=== PATIENT | female | born 1980 | race Caucasian/White ===

== ENCOUNTER 2019-10-29 13:07 | Emergency (ER) | payer OTHER, SELFPAY ==
[2019-10-29] VITALS (10 sets, daily range): BP systolic 84–137; BP diastolic 47–87; PULSE 66–88; RESP 16–23; TEMP 36.9; O2SAT 96–100
--- NOTE | ~2019-10-29 | XR_ITS ---
XR chest 2V DATE: 10/29/2019 13:37 INDICATION: Acute onset of chest pain, midsternal area TECHNIQUE: PA and lateral views COMPARISON: None FINDINGS: Normal heart size. No hilar or mediastinal enlargement. No pulmonary infiltrate or consolid ation, pleural effusion or pulmonary vascular congestion or pneumothorax. IMPRESSION: No active cardiopulmonary disease Reviewed, dictated and finalized at location B.
--- NOTE | ~2019-10-29 | CT_ITS ---
EXAMINATION: CTA chest PE protocol DATE: 10/29/2019 16:38 INDICATION: Chest pain. Elevated d-dimer. TECHNIQUE: Computed tomography angiography (CTA) of the chest was performed with 100 mL Omnipaque-350 intravenous contrast timed to evaluate the pulmonary arteries. Coronal maximum intensity projection 3D-reconstructions were created by the technologist. Automated exposure control and iterative reconst ruction technique were employed. Exam dose: 399.07 mGy-cm total exam DLP. COMPARISON: 10/28/2021 view chest FINDINGS: There is diagnostic contrast enhancement of the pulmonary arteries and no evidence of pulmo nary embolism. Approximately 1.5 cm hypoattenuating mass in the right lobe of the thyroid gland; consider thyroid ul trasound for further evaluation. No thoracic aortic aneurysm or dissection. Normal heart size. No hilar or mediastinal mass lesion or lymphadenopathy. No pericardial or pleural effusion. No pulmonary infiltrate or consolidation or pulmonary mass lesion is detected. There are numerous hypoenhancing areas within the spleen, some ill-defined, some circular and mass-li ke. The spleen measures approximately [address] abdomen pelvis with IV contrast material is re commended for further evaluation. IMPRESSION: No evidence of pulmonary embolism Possible splenic masses, raising concern for possible lymphoma, granulomatous disease,, less likely m etastatic disease. This may just be a normal variant heterogeneous enhancement pattern of the spleen. CT abdomen and pelvis with IV contrast material is recommended for further more complete evaluation of the abdomen and pelvis as well as spleen. Consider thyroid ultrasound for evaluation of approximately 1.5 cm mass in the right lobe Reviewed, dictated and finalized at Location A. Reviewed, dictated and finalized at location B. IMPRESSION: No evidence of pulmonary embolism Possible splenic masses, raising concern for possible lymphoma, granulomatous d isease,, less likely metastatic disease. This may just be a normal variant hete rogeneous enhancement pattern of the spleen. CT abdomen and pelvis with IV cont rast material is recommended for further more complete evaluation of the abdome n and pelvis as well as spleen. Consider thyroid ultrasound for evaluation of approximately 1.5 cm mass in the right lobe
--- NOTE | 2019-10-29 13:21 | ECG_ITS ---
Measurements Intervals [place] Rate: 89 P: 53 MA: 137 QRS: 38 QRSD: 100 T: 35 QT: 352 QTc: 429 Interpretive Statements SINUS RHYTHM INCOMPLETE RIGHT BUNDLE BRANCH BLOCK BORDERLINE ECG Electronically Signed On 10-29-2019 13:40:15 CDT by Herberth Sheppard D.O.
[2019-10-29 13:36] LABS: Basophils Percent Auto 0.5 % (0.2-1.2); Eosinophils Absolute Auto 0.1 K/mm3 (0-0.3); Eosinophils Percent Auto 0.8 % (0-4.4); Hematocrit 38.5 % (37.0-47.0); Hemoglobin 12.6 g/dL (12.0-15.0); Immature Granulocyte Absolute 0.02 K/mm3 (0.00-0.031); Immature Granulocyte Percent A 0.3 % (0-0.5); Lymphocytes Absolute Auto 1.76 K/mm3 (0.9-3.2); Lymphocytes Percent Auto 22.5 % (18.3-44.2); Mean Corpuscular HGB Conc 32.7 g/dl (32-36); Mean Corpuscular Hemoglobin 29.8 pg (26-34); Mean Platelet Volume 10.2 fl (7.4-10.4); Monocytes Absolute Auto 0.3 K/mm3 (0.1-0.6); Monocytes Percent Auto 4.2 % (2.6-8.5); Neutrophils Absolute Auto 5.6 K/mm3 (1.3-6.7); Neutrophils Percent Auto 71.7 % (45.5-73.1); Platelet Count Result 249 k/mm3 (150-375); Red Blood Count 4.23 M/mm3 (4.2-5.4); Red Cell Distribution Width 12.7 % (11.5-14.5); White Blood Count 7.8 K/mm3 (4.5-10.0)
[2019-10-29 13:46] LABS: Prothrombin Time 12.4 Seconds (11.1-14.7)
[2019-10-29 13:47] LABS: Partial Thromboplastin Time 28.4 SECONDS (22.3-36.8)
[2019-10-29] MEDS: ASPIRIN 81 MG CHEWABLE TABLET 324 MG PO (13:47)
--- NOTE | 2019-10-29 13:47 | ED.CHESTPAIN ---
HPI - Chest Pain General Chief Complaint: Chest Pain Stated Complaint: chest pain Time Seen by Provider: 10/29/19 13:28 Source: patient and RN notes reviewed Mode of arrival: ambulatory Limitations: no limitations History of Present Illness HPI narrative: Pt is a 39 y/o female who presents to the ED with c/o waxing and waning midsternal chest pain starting 4 days ago. She describes her pain as a tightness, and notes that her pain began to radiate into her middle back and down her lt arm 2 days ago. Pt states that her pain was slightly alleviated throughout the day yesterday, but notes that her pain worsened today. She currently rates her pain at 5/10. Pt denies any nausea, vomiting, fever, chills, cough, or SOB. She notes that she has a Hx of anxiety, and states that she believes her symptoms may be a result of her anxiety. MD complaint: chest pain Onset (ago): day(s) (4) Timing of current episode: other (waxing and waning) Pain location: other (midsternal chest) Pain radiation: left arm and back (middle back) Pain scale (0-10): 5 Quality: tightness Associated symptoms: other (none) Related Data Allergies Allergy/AdvReac Type Severity Reaction Status Date / Time No Known Allergies Allergy Unverified 05/11/17 13:24 Review of Systems Review of Systems: All systems reviewed & are unremarkable except as noted in HPI and below Constitutional: Constitutional: Denies chills and Denies fever(s) Cardiovascular: Cardiovascular: Reports chest pain (midsternal chest pain radiating into middle back and lt arm) Respiratory: Respiratory: Denies cough and Denies dyspnea Gastrointestinal: Gastrointestinal: Denies nausea and Denies vomiting PMFSH Past Medical History Medical History Anxiety Surgical History Surgical History Hx of section Hx of dilation and curettage Social History Social History Smoking status: Never smoker Gender identity (if verbalized by the patient): Female Exam Narrative: Exam Narrative: GENERAL: Well-appearing, well-nourished, and in no acute distress. HEAD: Normocephalic, atraumatic EYES: PERRLA and EOMI, conjunctiva clear without discharge THROAT:Mucous membranes moist, Oropharynx normal without erythema, exudate, peritonsillar swelling or fluctuance NECK: Supple, without lymphadenopathy or mass RESPIRATORY: No respiratory distress, Airway patent, Respirations non-labored, Clear to auscultation without rales, rhonchi or wheeze HEART: Regular rate and rhythm. No murmur heard. Normal peripheral pulses. ABDOMEN: Soft, nontender, nondistended, normal active bowel sounds. No masses. No rebound or guarding, No organomegaly. EXTREMITIES: No edema, normal strength with full range of motion. SKIN: Warm, dry, normal color without rash NEURO: Alert and oriented x3. CN 2-12 grossly intact. No focal deficits. PSYCH: Normal mood and affect. Course Reevaluation(s) Reevaluation #1: Patient reports she feels better. I have discussed with patient CT scan shows abnormality in her spleen that she will need further evaluation as outpatient. I discussed with radiology and he states he would not reimage at this point as patient received IV contrast today already and this is likely not cause of symptoms. Date: 10/29/19 Time: 18:20 Vital Signs Vital signs: Vital Signs Temperature 98.5 F 10/29/19 13:16 Pulse Rate 88 10/29/19 13:16 Respiratory Rate 18 10/29/19 13:16 Blood Pressure 137/84 10/29/19 13:16 Pulse Oximetry 100 10/29/19 13:16 Temperature 98.5 F 10/29/19 13:16 Pulse Rate 73 10/29/19 18:00 Respiratory Rate 18 10/29/19 18:00 Blood Pressure 125/87 10/29/19 18:31 Pulse Oximetry 100 10/29/19 18:31 MDM - Chest Pain Lab Data Attestation: I reviewed the patient's lab results. Result diagrams: 10/29/19 1
[2019-10-29] MEDS: NITROGLYCERIN SL 0.4 MG TABLET SUBLINGUAL (14:12)
[2019-10-29] MEDS: SODIUM CHLORIDE 0.9% IV 1,000 ML 999 ML (14:28)
[2019-10-29 14:33] LABS: Blood Urea Nitrogen 16 mg/dL (7-17); Calcium 9.2 mg/dL (8.4-10.2); Carbon Dioxide 25 mmol/L (22-30); Chloride 103 mmol/L (98-107); Estimated CRCL calculation 104 ml/min; Estimated Glomerular Filt Rate > 60; Glucose 99 mg/dL (65-105); Sodium 137 mmol/L (137-145)
[2019-10-29 14:45] LABS: Troponin I < 0.012 ng/mL (0.000-0.034)
--- NOTE | 2019-10-29 14:51 | PC.NURSE ---
Called lab to add on d-dimer.
[2019-10-29 15:01] LABS: D Dimer 0.72 ug/mL (<0.48)
[2019-10-29] MEDS: LACTATED RINGERS 1,000 ML 999 ML IV CONT (15:13)
[2019-10-29 17:35] LABS: Troponin I < 0.012 ng/mL (0.000-0.034)
== END 2019-10-29 18:46 | disposition home or self-care (01) ==
PROVIDERS: Emergency Medicine; Emergency Provider General Practice
DX: R07.9 Chest pain, unspecified (principal); I45.10 Unspecified right bundle-branch block; F41.9 Anxiety disorder, unspecified
CPT/HCPCS: 36415; 71046; 71275; 80048; 81025; 84484; 85025; 85380; 85610; 85730; 93005; 96360; 96361; 99284; A9270; J7030; J7120; Q9967

== ENCOUNTER 2021-07-01 08:43 | Outpatient (CLI) | payer OTHER, SELFPAY ==
--- NOTE | ~2021-07-01 | XR_ITS ---
XR lumbar spine 2-3V DATE: 07/01/2021 10:20 INDICATION: Low back pain, right sciatica TECHNIQUE: Peak, lateral, coned lateral lumbosacral views COMPARISON: None FINDINGS: There is moderate degenerative disc disease at L5-S1. The lumbar interspaces are relatively well preserved. No fracture or bone destruction or spondylolisthesis. The lumbar pedicles are intact. The sacroiliac joints are intact. IMPRESSION: Moderate degenerative disc disease at L5-S1 Reviewed, dictated and finalized at location A. V/STOL LANDING SIGNAL OFFICER
--- NOTE | ~2021-07-01 | XR_ITS ---
XR chest 2V DATE: 07/01/2021 10:19 INDICATION: Chest pain TECHNIQUE: PA and lateral views COMPARISON: 10/29/2019 CT pulmonary scan 10/29/2019 2 view chest FINDINGS: Normal heart size. No hilar or mediastinal enlargement. No pulmonary infiltrate or consolid ation, pleural effusion or pulmonary vascular congestion or pneumothorax. Included skeletal structure s are unremarkable. IMPRESSION: Negative chest Reviewed, dictated and finalized at location A. FITS CLERK IMPRESSION: Negative chest
--- NOTE | ~2021-07-01 | XR_ITS ---
XR thoracic spine 3V DATE: 07/01/2021 10:20 INDICATION: Thoracic spine pain TECHNIQUE: Standing AP, swimmer and lateral views COMPARISON: None FINDINGS: No fracture or dislocation. The thoracic pedicles are intact. Minimal degenerative spurring . Thoracic interspaces are preserved. No paraspinal soft tissue thickening. IMPRESSION: Minimal degenerative spurring Reviewed, dictated and finalized at location A. EMENTATION LEAD
== END 2021-07-01 08:44 ==
DX: R07.89 Other chest pain (principal); G89.29 Other chronic pain; M54.41 Lumbago with sciatica, right side; M54.42 Lumbago with sciatica, left side; M51.37 Other intervertebral disc degeneration, lumbosacral region
CPT/HCPCS: 71046; 72072; 72100

== ENCOUNTER → 2021-07-12 12:40 | Outpatient (CLI) | payer OTHER, SELFPAY ==
--- NOTE | ~2021-07-12 | MR_ITS ---
EXAMINATION: MR lumbar spine wo con DATE: 07/12/2021 13:41 INDICATION: Chronic back pain. Bilateral sciatica. TECHNIQUE: Magnetic resonance imaging (MRI) of the lumbar spine was performed without intravenous con trast. Sequences included sagittal T2-weighted FSE, sagittal T2-weighted FS FSE, sagittal T1-weighted FSE, and axial T2-weighted FSE. COMPARISON: Lumbar spine radiographs 07/01/2021 FINDINGS: Bone alignment is normal. Vertebral body heights are normal. There is moderately decreased disc height at L5-S1 with endplate remodeling. The distal spinal cord signal intensity is normal. The conus medullaris is at L1. The following disc levels are specifically discussed: L1-L2: The disc does not extend beyond the endplate margin. There is mild bilateral facet joint osteo arthritis. There is no neural foraminal stenosis. There is no central canal stenosis. L2-L3: The disc does not extend beyond the endplate margin. There is mild bilateral facet joint osteo arthritis. There is no neural foraminal stenosis. There is no central canal stenosis. L3-L4: The disc does not extend beyond the endplate margin. There is mild bilateral facet joint osteo arthritis. There is no neural foraminal stenosis. There is no central canal stenosis. L4-L5: The disc is bulging and has an annular fissure. There is no facet joint osteoarthritis. There is mild bilateral neural foraminal stenosis. There is mild central canal stenosis. L5-S1: The disc is bulging and has an annular fissure. There is mild bilateral facet joint osteoarthr itis. There is mild bilateral neural foraminal stenosis. There is mild central canal stenosis. IMPRESSION: 1. Mild lumbar spondylosis. Reviewed, dictated and finalized at location A. ING AGENCY MANAGER IMPRESSION: 1. Mild lumbar spondylosis.
--- NOTE | ~2021-07-12 | MR_ITS ---
EXAMINATION: MR thoracic spine wo con DATE: 07/12/2021 13:40 INDICATION: Chronic back pain. Bilateral sciatica. TECHNIQUE: Magnetic resonance imaging (MRI) of the thoracic spine was performed without intravenous c ontrast. Sagittal localizer T1-weighted FSE of the cervical spine was obtained. Thoracic spine sequen ariane included sagittal T2-weighted FSE, sagittal T1-weighted FSE, sagittal STIR FSE, and axial T2-weig hted FSE. COMPARISON: Thoracic spine radiographs 07/01/2021, chest CT 10/29/2019 FINDINGS: Bone alignment is normal. Vertebral body heights are normal. There is mildly decreased disc height at T5-T6. The discs do not extend beyond the endplate margins. There is mild facet joint oste oarthritis at a few levels. No neural foraminal stenosis or central canal stenosis. The spinal cord s ignal intensity is normal. There are multiple lesions of increased T2-weighted signal intensity in th e spleen, which are chronic, likely benign. IMPRESSION: 1. Mild thoracic spondylosis. Reviewed, dictated and finalized at location A. MOBILE ASSEMBLER
== END ==
DX: M54.42 Lumbago with sciatica, left side (principal); M54.41 Lumbago with sciatica, right side; G89.29 Other chronic pain; M47.894 Other spondylosis, thoracic region; M47.896 Other spondylosis, lumbar region
CPT/HCPCS: 72146; 72148

== ENCOUNTER → 2022-09-08 07:51 | Outpatient (CLI) | payer OTHER, SELFPAY ==
--- NOTE | ~2022-09-08 | MR_ITS ---
MRI of the thoracic spine Clinical History: Pain Technique: Axial T2-weighted images, and sagittal T1-weighted, T2-weighted, and STIR images were acqu ired. Findings: There is no fracture or subluxation of the thoracic spine. Vertebral bodies maintain normal height and alignment. No bone marrow signal abnormality identified. No disc bulge or herniation seen at any thoracic level. There is no spinal canal stenosis or cord com pression thoracic spine. No abnormal signal seen in the spinal cord. No epidural mass or collection. Paravertebral soft tissue s are unremarkable. Impression: Unremarkable exam. Reviewed, dictated and finalized at location . ESSIONAL NURSE Impression: Unremarkable exam.
--- NOTE | ~2022-09-08 | MR_ITS ---
MRI of the lumbar spine Clinical History: Back pain Technique: Axial T2-weighted images, and sagittal T1-weighted, T2-weighted, and T2 fat-sat images wer e acquired. COMPARISON: 07/12/2021 Findings: There is no fracture or subluxation of the lumbar spine. Vertebral bodies maintain normal h eight and alignment. No abnormal bone marrow signal identified. At L1-L2, L2-L3, L3-L4, intervertebral discs maintain normal signal and position. No disc bulge or he rniation at these levels. No spinal canal stenosis or neural foraminal narrowing at these levels. At L4-L5, there is minimal disc desiccation and minimal annular fissure. No significant disc bulge or herniation. No spinal canal stenosis or neural foraminal narrowing. At L5-S1, there is minimal degenerative disc narrowing, without bulge or herniation. No spinal canal stenosis or neural foraminal narrowing. Paravertebral soft tissues are unremarkable. Impression: Minimal degenerative disc changes at L4-L5 and L5-S1, as detailed above. No other significant finding s. Reviewed, dictated and finalized at location M. PROTECTION ENGINEERING TECHNICIAN Impression: Minimal degenerative disc changes at L4-L5 and L5-S1, as detailed above. No oth er significant findings.
== END ==
DX: M51.36 Other intervertebral disc degeneration, lumbar region (principal); M51.37 Other intervertebral disc degeneration, lumbosacral region
CPT/HCPCS: 72146; 72148

== ENCOUNTER 2023-10-25 01:09 | Day surgery (SDC) | payer OTHER, SELFPAY ==
[2023-10-17 15:33] VITALS: BMI 41.2
--- NOTE | 2023-10-17 15:43 | SUR.PREOP ---
Report to the Outpatient Waiting Room, entrance under the green pavilion located off [facility], at time _0715_ on date 10/25/23. Planned Procedure Time: _0915_. Time changes happen often and if your time is changed the preop area will call you the afternoon before. - You and your visitor will be asked to self-screen and do not enter if you have any COVID symptoms. - A mask is optional within the hospital at this time. Patients may have clear liquids (water, carbonated beverages, clear teas, apple juice) until 3 hours prior to surgery with a maximum of 20 ounces. - No food from midnight until time of surgery BEFORE 0615AM - Infants may have breast milk until 4 hours before surgery, infant formula 6 hours prior to surgery. - Children will be allowed to drink immediately following surgery. If applicable, please bring a bottle or sippy cup to assist with drinking. Juice, water, soda, and popsicles are readily available. For infants on formula, please bring formula the day of surgery. Pacifiers are allowed. Take the following medications with a SIP of water the morning of surgery: LEXAPRO DO NOT STOP ANY OF YOUR OTHER PRESCRIPTION MEDICATIONS PRIOR TO SURGERY ?EXCEPT THE FOLLOWING Medications to discontinue per physician Date to take last dose Please no make-up, nail filipino, hairspray, perfume, deodorant, or body powder the day of surgery. No jewelry (including any body piercings) or valuables the day of surgery, leave them at home. Please take a shower or bath the night before, or the morning of, surgery with an antibacterial soap. Wear comfortable, loose fitting clothing. Children are encouraged to wear pajamas. - Jewelry must be removed prior to entering the operating room. Rings and piercings that are not removed may be cut off. - The hospital will not accept responsibility for valuables. - Please leave all valuables, including medications, at home the day of surgery. If you are going home after surgery, a licensed yard driver must drive you home. - NO public transportation without another adult if you receive anesthesia. - We recommend that an adult stay with you for 24 hours following discharge. - We also recommend that you do not drive, make important decision, drink alcoholic beverages, or take any drugs that were not prescribed by your health care provider for at least 24 hours after your discharge time. For Pediatric surgeries, we recommend two adults accompany the child home. Follow any additional instructions given to you from your surgeon. If you or anyone in your household have experienced Covid symptoms in the past week, please notify your surgeon or the nurse liaison at the phone number below for possible testing. Telephone instructions given to __PATIENT___and asked if any additional questions and then verbalized understanding. Patient advised to call surgeon office or pre surgery nurse liaison [phone] if any additional questions.
--- NOTE | 2023-10-24 12:26 | WPDANESEPPF ---
Anes - Initial Pre Proc Eval Procedure: Operation Date: 10/25/23 10:15 Proposed Procedures p Hysteroscopy Dilation and Curettage with Princess Endometrial Ablation - Joe Kaufman MD Date/Time: 10/24/23 12:26 Surgeon: Joe Kaufman MD Pre Op Diagnosis: menorrhagia Patient Data Age: 43 Gender: F Height: 1.63 m Weight: 108.9 kg Allergies Allergy/AdvReac Type Severity Reaction Status Date / Time amoxicillin [From Augmentin] Allergy Intermediate Rash Verified 10/09/23 15:44 clavulanic acid Allergy Intermediate Rash Verified 10/09/23 15:44 [From Augmentin] clindamycin Allergy Intermediate Rash Verified 10/09/23 15:44 doxycycline Allergy Intermediate Rash Verified 10/09/23 15:44 Home Medications Medication Instructions Recorded Confirmed Type alprazolam 0.25 mg tablet (Xanax) 0.25 mg PO QHS PRN Anxiety 01/02/22 10/17/23 History escitalopram oxalate 10 mg tablet 10 mg PO DAILY 05/22/23 10/17/23 History Patient hx anesthesia problems: none Family hx anesthesia problems: none Results Review: All pre-operative results and documents have been reviewed as part of the pre-operative evaluation. [facility] Past Medical History Medical History Abnormal Pap smear of cervix 2001 abnormal pap - cervical bx - Anxiety Bartholin gland cyst 2012 marsupialization of bartholin gland cyst Depression Herpes, vulvar 2017 Miscarriage 08/2015 suction d&c Screening mammogram, encounter for Surgical History Surgical History H/O colonoscopy (02/22/22) History of colposcopy with cervical biopsy 2001 2001 abnormal pap - cervical bx - Hx of section 05/31/17 primary c/s b/c herpes vulvitis S/P thyroid biopsy 08/08/17 benign Family History Family History Father Hypertension Mother Hypertension Sibling Hypertension sister Social History Social History Smoking status: Never smoker Alcohol intake: current Drinks per week: 5 Substance use: never Substance use type: does not use Lack of Transportation: No Lack of Food: Never True Current Housing: I Have Housing Concerned About Future Housing: No Difficulty Paying Gas/Electric Bills: No Difficulty Paying for Meds: No Currently Unemployed: No Education: Bachelor's Degree Difficulty w/ Childcare or Family Care: No Living arrangements: with family Additional living arrangements comments: Occupation/Education: occupation Additional occupation/education comments: customer service Gender identity (if verbalized by the patient): Female Sexual Orientation (if Verbalized by the Patient): Straight or Heterosexual Anes - Eval Final PreProcedure Day of Procedure 10/24/23 12:26 Patient weight: morbidly obese Heart: regular rate and rhythm Lungs: clear to auscultation Airway: Mallampati scale class II Neurological: alert and oriented Last oral intake: >/= 8 hours ASA classification: III Emergent: no Anesthetic plan: proceed Anesthesia type and monitoring: general GIVS and standard monitoring Results Review: All pre-operative results and documents have been reviewed as part of the pre-operative evaluation. Informed Consent: The patient's anesthetic plan and its attendant risks and benefits were discussed with the patient/family/POA. Questions were solicited and answers provided to the satisfaction of the patient/family/POA.
--- NOTE | 2023-10-25 08:07 | WPDHPUPDATE1 ---
History and Physical Update Update Date/Time: 10/25/23 08:07 Assessment: 1. Menorrhagia 2. enlarged uterus 3. fibroid uterus Plan: 1. Hysteroscopy with uterine curettings 2. Endometrial ablation History and Physical has been reviewed, including an updated exam of the patient. There are NO changes in the patient's condition. Risks, benefits, and alternatives have been discussed and questions answered. Patient agrees to proceed with procedure.
[2023-10-25 08:20] VITALS: BP 139/87; PULSE 89; RESP 14; TEMP 36.8; O2SAT 99; BMI 40.4
[2023-10-25] MEDS: LACTATED RINGERS 1,000 ML 30 ML IV CONT ×2 (08:55→11:53)
[2023-10-25] MEDS: ACETAMINOPHEN 500 MG TABLET 1000 MG PO (09:03)
[2023-10-25 09:30] LABS: Hematocrit 34.1 % (37.0-47.0); Mean Corpuscular HGB Conc 32.3 g/dl (32-36); Mean Corpuscular Hemoglobin 29.4 pg (26-34); Mean Corpuscular Volume 91.2 fl (80-100); Mean Platelet Volume 9.8 fl (7.4-10.4); Platelet Count Result 247 k/mm3 (150-375); Red Blood Count 3.74 M/mm3 (4.2-5.4); Red Cell Distribution Width 13.2 % (11.5-14.5); White Blood Count 6.3 K/mm3 (4.5-10.0)
[2023-10-25] MEDS: ceFAZolin 2 GM/D5W 50 ML 2 GM/50 ML BAG IVPB (09:46)
--- NOTE | 2023-10-25 10:11 | W.PM.PROC2 ---
Procedure Note - Detailed Date of Procedure 10/25/23 Pre-op Diagnosis menorrhagia Post-op Diagnosis Same Procedure Performed 1. Hysteroscopy with uterine curettings 2. Endometrial ablation Surgeon Joe Kaufman MD Anesthesia MAC Findings 1. Enlarged uterus 2. Thickened endometrial cavity Description of Procedure Patient prepped and draped in usual manner for this procedure. Cervix was dilated to allow the hysteroscope to be placed, once this was done thickened tissue was noted throughout. Curettings were obtained without difficulty and there was no significant bleeding. Princess instrument was then placed cavity assessment was performed and instrument was activated. At the end of the cycle hysteroscopic exam revealed destruction throughout. This point the procedure was considered terminated patient was sent to recovery room in stable condition. Estimated Blood Loss 10 Drains No Packing No Pathology Yes Complications No immediate complications Condition Stable Disposition PACU [facility] Billing Surgery - Charge Forward: Surgery Billing
[2023-10-25 10:15] VITALS: BP 116/82; PULSE 79; RESP 16; O2SAT 96
[2023-10-25 10:45] VITALS: BP 111/57; PULSE 67; RESP 16
[2023-10-25] MEDS: oxyCODONE HCL (*CRX) 5 MG TAB IR PO (10:50)
[2023-10-25] MEDS: ONDANSETRON INJ 4 MG/2 ML VIAL IV PUSH (11:08)
[2023-10-25 11:15] VITALS: BP 103/78; PULSE 59; RESP 16
[2023-10-25] MEDS: SCOPOLAMINE 1 MG PATCH 1 PATCH TRANSDERM (11:38)
[2023-10-25] MEDS: diphenhydrAMINE HCl INJ 50 MG/ML VIAL 25 MG IV PUSH (11:39)
[2023-10-25 11:45] VITALS: BP 107/68; PULSE 57; RESP 16
[2023-10-25 12:05] VITALS: BP 114/68; PULSE 59; RESP 16
== END 2023-10-25 12:30 | disposition home or self-care (01) ==
PROVIDERS: Visit Provider Obstetrics & Gynecology
PROC: 0U5B8ZZ Destruction of Endometrium, Via Natural or Artificial Opening Endoscopic (ICD-10-PCS; CPT 58563; principal; 2023-10-25 10:15)
DX: N92.0 Excessive and frequent menstruation with regular cycle (principal); F32.A Depression, unspecified; F41.9 Anxiety disorder, unspecified; E66.01 Morbid (severe) obesity due to excess calories; Z68.41 Body mass index [BMI] 40.0-44.9, adult
CPT/HCPCS: 58563; 36415; 85027; 88305; A9270; J0690; J1200; J2250; J2405; J2704; J3010; J7120

== ENCOUNTER 2024-04-10 02:37 | Day surgery (SDC) | payer OTHER, SELFPAY ==
[2024-04-04 14:54] VITALS: BMI 41.5
--- NOTE | 2024-04-04 15:03 | PC.NURSE ---
Report to the Outpatient Waiting Room, entrance under the green pavilion located off [facility], at 0845 on 04/10/24. Planned Procedure Time: 1045.? Time changes happen often and if your time is changed the preop area will call you the afternoon before. - You and your visitor will be asked to self-screen and do not enter if you have any COVID symptoms. Please call surgeon if you need to reschedule. - A mask is optional within the hospital at this time. Patients may have clear liquids (water, carbonated beverages, clear teas, apple juice) until 3 hours prior to surgery with a maximum of 20 ounces. - No food from midnight until time of surgery and no smoking Take only the following medications with a SIP of water on the morning of surgery: Alprazolam (if needed) and Escitalopram DO NOT STOP ANY OF YOUR OTHER PRESCRIPTION MEDICATIONS PRIOR TO SURGERY EXCEPT THE FOLLOWING Medications to discontinue per physician Date to take last dose Please no make-up, nail new zealander, hairspray, perfume, deodorant, or body powder the day of surgery.? No jewelry (including any body piercings) or valuables the day of surgery, leave them at home.? Please take a shower or bath the night before, or the morning of, surgery with an antibacterial soap.? Wear comfortable, loose fitting clothing.? - Jewelry must be removed prior to entering the operating room.? Rings and piercings that are not removed may be cut off. - The hospital will not accept responsibility for valuables.? - Please leave all valuables, including medications, at home the day of surgery. If you are going home after surgery, a licensed industrial tractor driver must drive you home.? - NO public transportation without another adult if you receive anesthesia. - We recommend that an adult stay with you for 24 hours following discharge. - We also recommend that you do not drive, make important decision, drink alcoholic beverages, or take any drugs that were not prescribed by your health care provider for at least 24 hours after your discharge time. Follow any additional instructions given to you from your surgeon. Telephone instructions given to patient and asked if any additional questions and then verbalized understanding. Patient advised to call surgeon office or pre surgery nurse liaison [phone] if any additional questions.
--- NOTE | 2024-04-09 15:03 | PM.IMHP ---
H&P: HPI History of Present Illness Date/Time: 04/09/24 15:03 43-year-old female presents for removal of benign vaginal wall cyst. This cyst been present for many years, is now beginning cause issues with intercourse, not draining or bleeding just pressure and discomfort. does have a history of marsupialization of Bartholin gland cyst on the opposite side in the past. Chief Complaint: Vaginal wall cyst Review of Systems Review of Systems: All systems reviewed & are unremarkable except as noted in HPI and below PMFSH Past Medical History Medical History Abnormal Pap smear of cervix 2001 abnormal pap - cervical bx - Anxiety Bartholin gland cyst 2013 marsupialization of bartholin gland cyst Depression Herpes, vulvar 2017 Miscarriage 08/2015 suction d&c Screening mammogram, encounter for Surgical History Surgical History H/O colonoscopy (02/22/22) History of colposcopy with cervical biopsy 2001 2001 abnormal pap - cervical bx - History of hysteroscopy (10/25/23) Hysteroscopy with uterine curettings / Endometrial ablation Hx of section 05/31/17 primary c/s b/c herpes vulvitis S/P thyroid biopsy 08/08/17 benign Family History Family History Father Hypertension Mother Hypertension Sibling Hypertension sister Social History Social History Smoking status: Never smoker Alcohol intake: current Drinks per week: 3 Substance use: never Substance use type: does not use Lack of Transportation: No Lack of Food: Never True Current Housing: I Have Housing Concerned About Future Housing: No Difficulty Paying Gas/Electric Bills: No Difficulty Paying for Meds: No Currently Unemployed: No Education: Bachelor's Degree Difficulty w/ Childcare or Family Care: No Living arrangements: with family Additional living arrangements comments: Occupation/Education: occupation Additional occupation/education comments: customer service Gender identity (if verbalized by the patient): Female Sexual Orientation (if Verbalized by the Patient): Straight or Heterosexual Spiritual care concerns: No Meds Home Medications and Allergies Home Medications Medication Instructions Recorded Confirmed Type alprazolam 0.25 mg tablet (Xanax) 0.25 mg PO QHS PRN Anxiety 01/02/22 04/04/24 History escitalopram oxalate 10 mg tablet 10 mg PO DAILY 05/22/23 04/04/24 History Allergies Allergy/AdvReac Type Severity Reaction Status Date / Time amoxicillin [From Augmentin] Allergy Intermediate Rash Verified 04/04/24 14:53 clavulanic acid Allergy Intermediate Rash Verified 04/04/24 14:53 [From Augmentin] clindamycin Allergy Intermediate Rash Verified 04/04/24 14:53 doxycycline Allergy Intermediate Rash Verified 04/04/24 14:53 Exam Const: General: cooperative, healthy appearing and comfortable Resp: Effort & Inspection: normal respiratory effort Auscultation: clear to auscultation bilaterally Cardio: Rate: regular rate Rhythm: regular rhythm GI: Inspection: normal to inspection Auscultation: normal bowel sounds : External Female Exam: normal external appearance Speculum Exam - Vagina: Vaginal cyst present ( 3-4 cm left vaginal wall) Speculum Exam - Cervix: normal appearance of the cervix Bimanual exam- vagina & uterus: normal bimanual exam Bimanual Exam- Adnexa, other: normal adnexae Assessment and Plan Assessment and plan (1) Vaginal wall cyst: Code(s): N89.8 - Other specified noninflammatory disorders of vagina Status: Acute Plan excision of cyst under anesthesia
[2024-04-10] VITALS (8 sets, daily range): BP systolic 109–147; BP diastolic 67–96; PULSE 68–91; RESP 16–22; TEMP 36.4–37.2; O2SAT 95–100
--- NOTE | 2024-04-10 07:24 | WPDHPUPDATE1 ---
History and Physical Update Update Date/Time: 04/10/24 07:24 History and Physical has been reviewed, including an updated exam of the patient. There are NO changes in the patient's condition. Risks, benefits, and alternatives have been discussed and questions answered. Patient agrees to proceed with procedure.
[2024-04-10] MEDS: ACETAMINOPHEN 500 MG TABLET 1000 MG PO (08:42)
[2024-04-10] MEDS: LACTATED RINGERS 1,000 ML 30 ML IV CONT ×2 (08:49→10:41)
--- NOTE | 2024-04-10 09:01 | WPDANESEPPF ---
Anes - Initial Pre Proc Eval Procedure: Operation Date: 04/10/24 10:45 Proposed Procedures p Excision of Vaginal Wall Cyst - Joe Kaufman MD Date/Time: 04/10/24 09:01 Surgeon: Joe Kaufman MD Pre Op Diagnosis: vaginal wall cyst Patient Data Age: 43 Gender: F Height: 1.55 m Weight: 111.2 kg Allergies Allergy/AdvReac Type Severity Reaction Status Date / Time amoxicillin [From Augmentin] Allergy Intermediate Rash Verified 04/04/24 14:53 clavulanic acid Allergy Intermediate Rash Verified 04/04/24 14:53 [From Augmentin] clindamycin Allergy Intermediate Rash Verified 04/04/24 14:53 doxycycline Allergy Intermediate Rash Verified 04/04/24 14:53 Home Medications Medication Instructions Recorded Confirmed Type alprazolam 0.25 mg tablet (Xanax) 0.25 mg PO QHS PRN Anxiety 01/02/22 04/04/24 History escitalopram oxalate 10 mg tablet 10 mg PO DAILY 05/22/23 04/10/24 History Patient hx anesthesia problems: post op nausea/vomiting Family hx anesthesia problems: none Results Review: All pre-operative results and documents have been reviewed as part of the pre-operative evaluation. [facility] Past Medical History Medical History Abnormal Pap smear of cervix 2001 abnormal pap - cervical bx - Anxiety Bartholin gland cyst 2012 marsupialization of bartholin gland cyst Depression Herpes, vulvar 2017 Miscarriage 08/2015 suction d&c Screening mammogram, encounter for Surgical History Surgical History H/O colonoscopy (02/22/22) History of colposcopy with cervical biopsy 2001 2001 abnormal pap - cervical bx - History of hysteroscopy (10/25/23) Hysteroscopy with uterine curettings / Endometrial ablation Hx of section 05/31/17 primary c/s b/c herpes vulvitis S/P thyroid biopsy 08/08/17 benign Family History Family History Father Hypertension Mother Hypertension Sibling Hypertension sister Social History Social History Smoking status: Never smoker Alcohol intake: current Drinks per week: 3 Substance use: never Substance use type: does not use Lack of Transportation: No Lack of Food: Never True Current Housing: I Have Housing Concerned About Future Housing: No Difficulty Paying Gas/Electric Bills: No Difficulty Paying for Meds: No Currently Unemployed: No Education: Bachelor's Degree Difficulty w/ Childcare or Family Care: No Living arrangements: with family Additional living arrangements comments: Occupation/Education: occupation Additional occupation/education comments: customer service Gender identity (if verbalized by the patient): Female Sexual Orientation (if Verbalized by the Patient): Straight or Heterosexual Spiritual care concerns: No Anes - Eval Final PreProcedure Day of Procedure 04/10/24 09:01 Patient weight: morbidly obese Heart: regular rate and rhythm Lungs: clear to auscultation Airway: Mallampati scale class II Neurological: alert and oriented Last oral intake: >/= 8 hours ASA classification: III Emergent: no Anesthetic plan: proceed Anesthesia type and monitoring: general GIVS (may use LMA) and standard monitoring Results Review: All pre-operative results and documents have been reviewed as part of the pre-operative evaluation. Informed Consent: The patient's anesthetic plan and its attendant risks and benefits were discussed with the patient/family/POA. Questions were solicited and answers provided to the satisfaction of the patient/family/POA.
[2024-04-10] MEDS: SCOPOLAMINE 1 MG PATCH 1 PATCH TRANSDERM (09:05)
--- NOTE | 2024-04-10 09:52 | W.PM.PROC2 ---
Procedure Note - Detailed Date of Procedure 04/10/24 Pre-op Diagnosis vaginal wall cyst Post-op Diagnosis Same Procedure Performed Excision of vaginal wall cyst Surgeon Joe Kaufman MD Anesthesia MAC Findings 5cm cyst Description of Procedure Patient prepped draped in usual manner for this procedure. Skin over the cyst was incised and the cyst was enucleated without difficulty. To layer of deep sutures were placed to approximate the deeper tissue and then a subcuticular running interlocking suture to approximate the vaginal wall. Packing was placed to keep pressure though there was no bleeding at the end of the procedure. This will be removed [id number]. Procedure was considered terminated patient sent to recovery room in stable condition. Estimated Blood Loss 20 Drains No Packing No Pathology Yes Complications No immediate complications Condition Stable Disposition PACU [facility] Billing Surgery - Charge Forward: Surgery Billing
[2024-04-10] MEDS: fentaNYL CITRATE INJ (*CRX) 100 MCG/2 ML VIAL 25 MCG IV PUSH ×4 (10:06→10:29)
[2024-04-10] MEDS: KETOROLAC 30 MG/ML VIAL (*BKC) IV PUSH (10:29)
[2024-04-10] MEDS: oxyCODONE HCL (*CRX) 5 MG TAB IR PO (11:43)
== END 2024-04-10 12:04 | disposition home or self-care (01) ==
PROVIDERS: PCP Physician Assistant; Visit Provider Obstetrics & Gynecology
PROC: (CPT 57135; principal; 2024-04-10 10:45)
DX: N89.8 Other specified noninflammatory disorders of vagina (principal); F41.9 Anxiety disorder, unspecified; F32.A Depression, unspecified; E66.01 Morbid (severe) obesity due to excess calories; Z68.42 Body mass index [BMI] 45.0-49.9, adult
CPT/HCPCS: 57135; 88305; A9270; J1100; J1885; J2250; J2405; J2704; J3010; J7120

== ENCOUNTER 2024-08-12 12:42 | Emergency (ER) | payer OTHER, SELFPAY ==
[2024-08-12 13:05] VITALS: BP 128/94; PULSE 100; RESP 18; TEMP 36.5; O2SAT 97
--- NOTE | 2024-08-12 13:52 | ED.URI ---
HPI - URI/Sore Throat General Chief Complaint: Upper Respiratory Infection Stated Complaint: sinus pressure and congestion Time Seen by Provider: 08/12/24 13:53 Source: patient, RN notes reviewed and old records reviewed Mode of arrival: ambulatory Limitations: no limitations History of Present Illness HPI Narrative: 44-year-old female presents to the [facility] with 11 day history of sinus congestion, sinus pressure and pain. Onset (ago): day(s) () Related Data Home Medications ?Medication ?Instructions ?Recorded ?Confirmed ?Last Taken ?Type alprazolam 0.25 mg tablet (Xanax) 0.25 mg PO QHS PRN Anxiety 01/02/22 08/12/24 Unknown History escitalopram oxalate 10 mg tablet 10 mg PO DAILY 05/22/23 08/12/24 04/09/24 09:00 History Allergies Allergy/AdvReac Type Severity Reaction Status Date / Time amoxicillin (From Augmentin) Allergy Intermediate Rash Verified 08/12/24 14:01 clavulanic acid (From Allergy Intermediate Rash Verified 08/12/24 14:01 Augmentin) clindamycin Allergy Intermediate Rash Verified 08/12/24 14:01 doxycycline Allergy Intermediate Rash Verified 08/12/24 14:01 Review of Systems Review of Systems: All systems reviewed & are unremarkable except as noted in HPI and below Constitutional: Constitutional: Reports no additional constitutional complaints ENT: Reports as per HPI, Reports sinus pain and Reports sinus pressure Cardiovascular: Cardiovascular: Reports no additional cardiovascular complaints, Denies chest pain and Denies dyspnea Respiratory: Respiratory: Reports no additional respiratory complaints, Denies chest congestion, Denies cough and Denies dyspnea Musculoskeletal: Musculoskeletal: Reports no additional musculoskeletal complaints Integumentary/Breasts: Skin/Breast: Reports system reviewed and no additional complaints, except as docu PMFSH Past Medical History Medical History Screening mammogram, encounter for Herpes, vulvar 2017 Miscarriage 08/2015 suction d&c Abnormal Pap smear of cervix 2001 abnormal pap - cervical bx - Bartholin gland cyst 2012 marsupialization of bartholin gland cyst Depression Anxiety Surgical History Surgical History History of gynecological procedure (04/10/24) Excision of vaginal wall cyst History of hysteroscopy (10/25/23) Hysteroscopy with uterine curettings / Endometrial ablation H/O colonoscopy (02/22/22) S/P thyroid biopsy 08/08/17 benign History of colposcopy with cervical biopsy 2001 2001 abnormal pap - cervical bx - Hx of section 05/31/17 primary c/s b/c herpes vulvitis Family History Family History Father Hypertension Mother Hypertension Sibling Hypertension sister Social History Social History Smoking status: Never smoker Alcohol intake: current Drinks per week: 3 Substance use: never Substance use type: does not use Do You Feel Safe in your Home?: Yes Lack of Transportation: No Lack of Food: Never True Current Housing: I Have Housing Concerned About Future Housing: No Difficulty Paying Gas/Electric Bills: No Difficulty Paying for Meds: No Currently Unemployed: No Education: Bachelor's Degree Difficulty w/ Childcare or Family Care: No Living arrangements: with family Additional living arrangements comments: Occupation/Education: occupation Additional occupation/education comments: customer service Gender identity (if verbalized by the patient): Female Sexual Orientation (if Verbalized by the Patient): Straight or Heterosexual Spiritual care concerns: No Comments At the time of my signature, I reviewed and agree with the nursing past medical, surgical, social, and family history. There is no relevant family history pertinent to the patient complaint. Exam Const: General: cooperative, healthy appearing, comfortable, no acute distress, well developed, alert and well nourished Nutritional Appearance: well nourished and obese Orientation/consciousness: patient oriented x3 Limitations: no limitations HENMT: Head: normal to inspection Ears: hearing grossly normal bilaterally, external ears normal, EAC's normal, mastoids normal, no periauricular adenopathy and TM abnormal with fluid behind the TM on the right Face/Nose/Sinus: Normal external nose present, Normal nares present, Normal nasal mucous membranes and turbinates present and No nasal discharge present Mouth: Yes Normal oral and palatal mucosa present, Yes lip normal and Yes tongue normal Throat: posterior oropharynx normal, uvula midline, postnasal drainage and no uvular edema Eyes: General: appearance normal, both eyes and all related structures Alignment and Position: alignment normal Neck: Neck: normal visual inspection, full ROM, no lymphadenopathy and no meningeal signs Chest: Chest palpation & inspection: normal inspection of the chest Resp: Effort & Inspection: normal respiratory effort and able to speak in complete sentences Auscultation: clear to auscultation bilaterally, no crackles, no rales, no rhonchi and no wheezes Cardio: Rate: regular rate Skin: General skin exam: normal color and no rashes or lesions noted Neuro: General: patient oriented x3, gait normal, moves all extremities and no meningeal signs Cognition (Neuro): normal cognition Speech: normal speech Gait exam (Neuro): Normal gait present Extrem: General: normal to inspection, full ROM, capillary refill normal and normal gait Psych: Appearance: grossly normal and well kempt Mental Status: mental status grossly normal Speech and movement: Normal speech and movement present and Clear speech present Affect: normal affect Attitude: cooperative Course Course Level of Care: Express Care Visit Vital Signs Vital signs: Vital Signs Temperature 97.7 F 08/12/24 13:05 Pulse Rate 100 08/12/24 13:05 Respiratory Rate 18 08/12/24 13:05 Blood Pressure 128/94 H 08/12/24 13:05 Pulse Oximetry 97 08/12/24 13:05 Oxygen Delivery Room Air 08/12/24 13:05 Temperature 97.7 F 08/12/24 13:05 Pulse Rate 100 08/12/24 13:05 Respiratory Rate 18 08/12/24 13:05 Blood Pressure 128/94 H 08/12/24 13:05 Pulse Oximetry 97 08/12/24 13:05 Oxygen Delivery Room Air 08/12/24 13:05 Reviewed MDM - URI/Sore Throat MDM Narrative Medical decision making narrative: Patient sitting comfortably in exam room. Nontoxic, vitals stable. Patient in no acute distress. Patient presents with 11 day history of sinus pain, pressure Due to length of symptoms, will treat with an antibiotic, discussed that this most likely viral, discussed [id number] treatments that would help more. Patient appropriate for outpatient treatment and follow-up Discharge instructions reviewed with patient, as well as provided in writing per nursing staff. The instructions also include specific and strict return/GO TO THE ER as well as f/u information. All questions have been answered, and the patient deny any further questions with discharge and discharge plan. Some parts of this dictation were generated by voice recognition software and may contain typographical and/or grammatical inaccuracies. Differential Diagnosis Differential diagnosis: Likely upper respiratory infection, otitis media, sinusitis and viral infection Critical Care Time Critical Care Time Critical Care Time: No Discharge Plan Discharge Clinical Impression: Sinusitis, Fluid level behind tympanic membrane of right ear Patient Disposition: Home, Self-Care Condition: Stable Instructions: Antibiotic Form, Sinusitis (ED), Fluid In The Ear (Serous Otitis Media) (ED) Additional Instructions: It is very important to treat your symptoms. Drink plenty of water, Gatorade, Pedialyte, ice pops or Jell-O. -Alternate Tylenol and Motrin per package directions for fever or pain. You can alternate every 4 hours -Antihistamine medication such as Zyrtec/Claritin/Katie during the day can help improve symptoms. -doing daily nasal irrigations can help relieve pressure your sinuses. Things like a Neti pot -Use Flonase twice a day for 5 days then daily to help reduce the inflammation and dry up your sinuses. -You can also use Mucinex. Be sure to drink plenty of water with this medication at least 8 ounces with every dose and it is important to drink 8 to 10 glasses of water per day. Water is a natural decongestant -Eat and drink things that are easy to swallow, like tea or soup, or popsicles. -Oral rinses such as: Salt water gargles and/or may use topical anesthetic (eg. Chloraseptic spray) or lozenges to relieve dryness or throat pain). -Frequent hand washing or hand home care and home health aides teacher is one of the best ways to prevent spread of infection. -Using a vaporizer or humidifier at night will also help thin secretions and help with coughing up phlegm. -Follow up with primary care provider in 7-10 days if condition is not improving - For new or worsening symptoms go directly to the nearest ER Patient Language: Lebanese Prescriptions: New methylprednisolone [Medrol (Luis Antonio)] 4 mg tablets,dose pack See Rx Instructions PO .COMPLEX Qty: 21 0RF Rx Instructions: orally per package directions cefdinir 300 mg capsule 300 mg PO Q12H Qty: 20 0RF No Action alprazolam [Xanax] 0.25 mg tablet 0.25 mg PO QHS PRN (Reason: Anxiety) Patient Comments: hasnet taken in awhile escitalopram oxalate 10 mg tablet 10 mg PO DAILY Patient Comments: takes in AM Follow-up/Referrals: Orlin,ABDOULAYE Blanc [Primary Care Provider] - 2 Weeks ([facility] care follow up ) Stand Alone Forms: Work/School Release IP Time of Disposition: 14:02
== END 2024-08-12 14:07 | disposition home or self-care (01) ==
PROVIDERS: Emergency Provider Nurse Practitioner; PCP Physician Assistant
DX: J32.9 Chronic sinusitis, unspecified (principal); H73.891 Other specified disorders of tympanic membrane, right ear; F41.9 Anxiety disorder, unspecified; F32.A Depression, unspecified
CPT/HCPCS: 99213; G0463

== ENCOUNTER 2024-10-22 11:56 | Outpatient (CLI) | payer OTHER, SELFPAY ==
--- NOTE | ~2024-10-22 | CT_ITS ---
EXAMINATION: CT sinus wo con DATE: 10/22/2024 12:08 INDICATION: Chronic pansinusitis. TECHNIQUE: Computed tomography (CT) of the paranasal sinuses was performed without intravenous contra st. Iterative reconstruction technique was employed. The dose-length product was 269.39 mGy-cm. COMPARISON: None FINDINGS: The frontal sinuses are clear. There is mild mucosal thickening in the left ethmoid sinuses . There is mild mucosal thickening at the maxillary ostia. The sphenoid sinuses are clear. There is c oncha bullosa involving left middle turbinate. The ostiomeatal units are patent. There is mild leftwa rd deviation of the nasal septum. IMPRESSION: 1. Mild mucosal thickening in the paranasal sinuses. Reviewed, dictated and finalized at location B.
== END 2024-10-22 11:57 | disposition home or self-care (01) ==
LOC: MICIMG 11:57
PROVIDERS: PCP Physician Assistant; Visit Provider Otolaryngology
DX: J32.4 Chronic pansinusitis (principal); J34.3 Hypertrophy of nasal turbinates; J34.2 Deviated nasal septum
CPT/HCPCS: 70486

== ENCOUNTER 2025-08-11 09:20 | Outpatient (CLI) | payer OTHER, SELFPAY ==
--- NOTE | ~2025-08-11 | XR_ITS ---
XR hip LT min 2V 08/11/2025 09:47 Indication: Left hip pain Procedure: 2 views left hip Comparison: No prior studies for comparison. Findings: Normal anatomic alignment. Mild osteoarthritis of the hip. No fracture, subluxation or dislocation. No soft tissue abnormality. No foreign body. Impression: 1: Mild osteoarthritis left hip. Reviewed, dictated and finalized at location O. FCASE SEWER Impression: 1: Mild osteoarthritis left hip.
--- NOTE | ~2025-08-11 | XR_ITS ---
XR lumbar spine 2-3V 08/11/2025 09:47 Indication: Left hip pain Procedure: 3 views lumbar spine Comparison: 07/01/2021 Findings: There is disc narrowing at L4-5 and L5-S1. There is facet hypertrophy at these levels. Pedicles intact. Lumbar lordosis is normal. Sacral foramen are symmetric. Surrounding soft tissues are unremarkable. Impression: 1: Mild-moderate lower lumbar spondylosis. Reviewed, dictated and finalized at location O. RAM OR PROJECT ADMINISTRATOR Impression: 1: Mild-moderate lower lumbar spondylosis.
== END 2025-08-11 09:21 | disposition home or self-care (01) ==
PROVIDERS: PCP Physician Assistant; Visit Provider Physician Assistant
DX: M47.816 Spondylosis without myelopathy or radiculopathy, lumbar region (principal); M16.12 Unilateral primary osteoarthritis, left hip
CPT/HCPCS: 72100; 73502